=== PATIENT | male | born 1945 | race Caucasian/White ===

== ENCOUNTER → 2016-10-11 | Outpatient (CLI) | payer OTHER, MEDICARE ==
[~2016-10-11] MED LIST: B12 5,000 MCG1 EACH SL; BLOOD PRESSURE MED; CHLORTHALIDONE25 MG PO; CYANOCOBALAM1000 MCG PO; DILAUDID4 MG PO; ENALAPRIL MALEAT5 MG; FLEXERIL10 MG PO; GLIPIZIDE10 MG PO; GLIPIZIDE5 M1 PO; GLIPIZIDE5 MG PO; GLUCOPHAGE500 MG PO; JANUVIA100 MG PO; LANTUS 3 M100 UNITS1 SC; LIPITOR80 MG PO; LO-DOSE ASPIRIN81 M2 PO; LOPRESSOR25 MG PO; METFORMIN HCL500 MG PO; METFORMIN HCL850 MG PO; NIACIN; NOVOLOG100 UNIT/1 SC; OMEPRAZOLE20 MG PO; PERCOCET 5/31 TABLET PO; POTASSIUM CITRA5 MEQ PO; POTASSIUM CITRATE; PRILOSEC20 MG PO; PROTONIX40 MG PO; SLO-NIACIN750 MG PO; TORADOL10 MG PO; ULTRAM50 MG PO; VASOTEC5 MG PO; VICODIN,LORT1 TABLET PO
== END | disposition home or self-care (01) ==
LOC: NUC 08:23
DX: C61 Malignant neoplasm of prostate (principal); R71.8 Other abnormality of red blood cells
CPT/HCPCS: 78306; A9503

== ENCOUNTER 2017-10-07 06:33 | Inpatient (IN) | payer OTHER, MEDICARE ==
[~2017-10-07] VITALS: Ht 185.4 cm; Wt 124.1 kg
[2017-10-07 07:52] LABS: HEMATOCRIT 33.5 % (38.0-50.0); HEMOGLOBIN 11.8 G/DL (12.5-16.6); MCH 33.3 PG (29.0-34.0); MCHC 35.2 G/DL (30.0-36.0); MCV 94.6 FL (86-99); PLATELET COUNT 108 K/uL (156-360); RBC DIS.WIDTH-CV 13.4 % (11.8-14.6); RBC DIS.WIDTH-SD 46.5 % (39-53); RED BLOOD COUNT 3.54 M/uL (4.00-5.50); WHITE BLOOD COUNT 5.1 K/uL (4.1-10.2)
[2017-10-07 08:01] LABS: CHLORIDE 107 mEq/L (99-109)
[2017-10-07 08:02] LABS: POTASSIUM 3.9 mEq/L (3.7-5.4); SODIUM 139 mEq/L (136-147)
[2017-10-07 08:03] LABS: GLUCOSE 163 mg/dL (70-99)
[2017-10-07 08:07] LABS: CREATININE 1.2 mg/dL (0.6-1.3); GFR ESTIMATE (CALCULATED) > 59 mL/min/ (58.99-99999)
[2017-10-07 08:08] LABS: UREA NITROGEN (BUN) 20 mg/dL (9-23)
[2017-10-07 08:14] LABS: TROP-I INTERPRETATION NEGATIVE; TROPONIN-I < 0.01 ng/mL (0.0-0.30)
[2017-10-07] MEDS ORDERED: TAMSULOSIN HCL0.4 MG PO (12:22)
[2017-10-07] MEDS ORDERED: PROSTEON TABLE1 EACH PO (12:23)
[2017-10-07 12:56] LABS: INTER. NORMALIZED RATIO 1.2
[2017-10-07 18:37] LABS: TROP-I INTERPRETATION NEGATIVE; TROPONIN-I < 0.01 ng/mL (0.0-0.30)
[2017-10-07 20:14] VITALS: BP 141/70
[2017-10-07 23:22] VITALS: BP 130/63
[2017-10-08 03:13] VITALS: BP 124/58
[2017-10-08 08:48] VITALS: BP 143/86
[2017-10-08 10:53] LABS: D-DIMER ELISA < 150.00 ng/mLDDU (<230)
[2017-10-08 10:56] LABS: CHLORIDE 105 mEq/L (99-109); POTASSIUM 4.2 mEq/L (3.7-5.4); SODIUM 136 mEq/L (136-147)
[2017-10-08 10:58] LABS: GLUCOSE 185 mg/dL (70-99)
[2017-10-08 11:02] LABS: CREATININE 1.1 mg/dL (0.6-1.3); GFR ESTIMATE (CALCULATED) > 59 mL/min/ (58.99-99999)
[2017-10-08 11:03] LABS: UREA NITROGEN (BUN) 18 mg/dL (9-23)
[2017-10-08 11:40] VITALS: BP 137/87
[2017-10-08 11:51] LABS: HEMOGLOBIN A1c (GLYCOHEMOGLOB) 6.1 % HGB (Below 5.7)
[2017-10-08 11:58] LABS: HDL CHOLESTEROL 34 MG/DL (Desirable>=40); LDL CHOLESTEROL 27 mg/dL (Desirable<100); NON-HDL CHOLESTEROL 52 mg/dL (Desirable<160); TOTAL CHOLESTEROL 86 mg/dL (Desirable<200); TRIGLYCERIDES 124 MG/DL (Normal: <150)
== END 2017-10-08 12:40 | disposition home or self-care (01) | DRG 204 ==
LOC: EME 06:33 → EDOF 08:40 → ENRESERV 08:42 → 5WEST 17:12 → ENRESERV 19:48 → 5WEST 20:11
PROVIDERS: Emergency Medicine; Family Medicine; Internal Medicine Cardiovascular Disease
PROC: B2151ZZ Fluoroscopy of Left Heart using Low Osmolar Contrast (ICD-10-PCS; principal; 2017-10-07)
PROC: B2111ZZ Fluoroscopy of Multiple Coronary Arteries using Low Osmolar Contrast (ICD-10-PCS; principal; 2017-10-07)
PROC: 4A023N7 Measurement of Cardiac Sampling and Pressure, Left Heart, Percutaneous Approach (ICD-10-PCS; principal; 2017-10-07)
DX: R06.00 Dyspnea, unspecified (principal); I25.110 Atherosclerotic heart disease of native coronary artery with unstable angina pectoris; E11.9 Type 2 diabetes mellitus without complications; J44.9 Chronic obstructive pulmonary disease, unspecified; E78.5 Hyperlipidemia, unspecified; G47.33 Obstructive sleep apnea (adult) (pediatric); I10 Essential (primary) hypertension; D64.81 Anemia due to antineoplastic chemotherapy; D69.59 Other secondary thrombocytopenia; T45.1X5A Adverse effect of antineoplastic and immunosuppressive drugs, initial encounter; E66.9 Obesity, unspecified; Z79.4 Long term (current) use of insulin; Z85.46 Personal history of malignant neoplasm of prostate; Z87.891 Personal history of nicotine dependence; Z95.5 Presence of coronary angioplasty implant and graft; Z68.36 Body mass index [BMI] 36.0-36.9, adult; Z79.82 Long term (current) use of aspirin
CPT/HCPCS: 71046; 78582; 80048; 80061; 82948; 83036; 84484; 85027; 85379; 85610; 87502; 93005; 93306; 93970; 99281; 99285; A9540; A9567; C1769; C1887; J1644; J1650; J1815; J2250; J3010; J7030